=== PATIENT | male | born 1990 | race Caucasian/White ===

== ENCOUNTER 2021-02-04 22:56 | Emergency (ER) | payer BC, SELFPAY ==
[2021-02-04 23:16] VITALS: BP 125/75; PULSE 81; RESP 16; TEMP 36.7; O2SAT 99; BMI 22.4
[2021-02-05 00:22] LABS: Glucose Urine UA NEG (NEG); Leukocyte Esterase Urine NEG (NEG); Nitrite Urine NEG (NEG); Specific Gravity - Urine 1.015 (1.005-1.025); Urine Blood TRACE (NEG); Urine Ketones NEG (NEG); Urine Protein NEG (NEG-TRACE)
[2021-02-05 00:28] LABS: Appearance Urine CLEAR; Color Urine STRAW
--- NOTE | 2021-02-05 00:42 | ED_ITS ---
HPI - General Adult General Chief complaint: General Medical Stated complaint: Frequent urination Time Seen by Provider: 02/04/21 23:02 Source: patient Mode of arrival: ambulatory History of Present Illness HPI narrative: This is a 30-year-old male with 2 years of urinary frequency without associated fevers, chills, nausea, vomiting, abdominal pain/diarrhea, and denies any urinary pain/burning. Patient states that this happened before a nd he was followed by urologist but states that he then ?dropped the ball?. Although he is sexually active he states that he was having this problem prior to being sexually active. He denies any penile discharge. Related Data Allergies Allergy/AdvReac Type Severity Reaction Status Date / Time No Known Allergies Allergy Verified 02/05/21 00:15 Review of Systems Review of Systems: Pertinent positives and negatives as stated in HPI 10 point review of systems is otherwise negative. [facility] Past Medical History Source: nursing notes reviewed Social History Social History Advance Directives: No Physical Exam Vital Signs: Vital Signs: Last Vital Signs Temp 98.1 F 02/04/21 23:16 Pulse 81 02/04/21 23:16 Resp 16 02/04/21 23:16 BP 125/75 02/04/21 23:16 Pulse Ox 99 02/04/21 23:16 Body Mass Index 22.4 VITAL SIGNS: Reviewed. GENERAL: Well developed, well nourished, in no acute distress. HEAD: Normocephalic/atraumatic EYES: PERRLA, EOMI EARS: Ext canals without abnormality NOSE: Nares patent bilateral OROPHARYNX: no oral lesions noted, posterior pharynx clear NECK: Supple, no adenopathy LUNGS: Normal breath sounds.SpO2<99> CARDIOVASCULAR: Regular rate and rhythm without noted murmurs ABDOMEN: Soft, non-tender, non-distended with bowel sounds. NEUROLOGIC: Alert and oriented x 4. Course Course Course Narrative: 30-year-old male with history of urinary frequency and presents with same. Low suspicion for UTI or STI and this was discussed with patient at bedside stating that we would evaluate for urinary tract infection and then he would need to follow up further with his primary care provider/Urology for further outpatient evaluation. Review of investigations negative for any acute findings. All results were discussed with the patient at bedside and he was discharged in stable condition. Medical Decision Making Lab Data Labs: Lab Results 02/05/21 Range/Units 00:03 Urine Color STRAW Urine Appearance CLEAR Urine pH 7.0 (5.0-8.0) Ur Specific [place] 1.015 (1.005-1.025) Urine Protein NEG (NEG-TRACE) MG/DL Urine Glucose (UA) NEG (NEG) MG/DL Urine Ketones NEG (NEG) MG/DL Urine Blood TRACE (NEG) Urine Nitrite NEG (NEG) Ur Leukocyte Esterase NEG (NEG) Urine RBC 0-2 (0) /HPF Urine WBC 0 (0-4) /HPF Ur Squamous Epith Cells NONE /LPF Amorphous Sediment TRACE /LPF Urine Bacteria NONE /LPF Discharge Plan Discharge Clinical Impression: H/O urinary frequency, Urinary frequency Patient Disposition: Home, Self-Care Instructions: Urinary Urgency and Frequency (DC) Additional Instructions: Please follow-up with your primary care provider in the next 3 days for re- evaluation. Do not hesitate to return to the emergency department for any acute worsening of your symptoms. Referrals: Александр Thompson MD [Physician] - 2 days (Please evaluate and treat as indicated for 2 years of urinary frequency. Urinalysis is negative for infection and STI eval is pending.)
[2021-02-05 01:03] LABS: Amorphous Sediment Urine TRACE /LPF; RBC Urine 0-2 /HPF (0); WBC Urine 0 /HPF (0-4)
--- NOTE | 2021-02-05 01:42 | PC.NURSE ---
pt moved to main ed report given to alejandra schofield.
[2021-02-05 12:01] LABS: CT PCR NOT DETECTED (Not Detect.); NG PCR NOT DETECTED (Not Detect.)
== END 2021-02-05 02:14 | disposition home or self-care (01) ==
PROVIDERS: Emergency Provider Student in an Organized Health Care Education/Training Program
DX: R35.0 Frequency of micturition (principal)
CPT/HCPCS: 81001; 87491; 87591; 99283

== ENCOUNTER → 2021-04-19 15:30 | Outpatient (BNVA) | payer BC, SELFPAY | PROVIDERS: Visit Provider Urology ==

== ENCOUNTER → 2021-06-29 15:27 | Outpatient (BNVA) | payer BC, SELFPAY | PROVIDERS: PCP Physician Assistant; Visit Provider Urology | DX: M62.89 Other specified disorders of muscle (principal); N32.0 Bladder-neck obstruction | CPT/HCPCS: 51798 ==